=== PATIENT | female | born 1995 | race Caucasian/White ===

== ENCOUNTER 2017-06-08 17:05 | Emergency (ER) | payer MEDICAID, OTHER ==
[~2017-06-08 17:05] MED LIST: PREN1CAP30 PO
--- NOTE | 2017-06-08 18:12 | PD ---
HPI Chief Complaint Also of mucous plug and some contractions that are 10 minutes apart Date Seen: Jun 08, 2017 Time Seen: 18:00 Travel History International Travel<30 Days: No Contact w/Intl Traveler<30Days: No Known Affected Area: No History of Present Illness HPI Patient is 22-year-old white female at 39 weeks presents with contractions have spaced out and loss of mucous plug, denies bleeding or leakage of fluid. heart rate tracing is reactive and she is eddie every 5 to 8 minutes Weeks Gestation: 39 Para: 1 : 2 History Obstetric History Obstetric History One vaginal delivery Social History Alcohol Use: No Tobacco Use: No Substance Abuse: No Allergies-Medications (Allergen,Severity, Reaction): Coded Allergies: penicillin G (Unverified Allergy, Severe, rash, 05/04/17) Sulfa (Sulfonamide Antibiotics) (Unverified Allergy, Mild, HIVES, 05/04/17) amoxicillin (Unverified Allergy, Mild, HIVES, 05/04/17) Home Meds Active Scripts Without A W/Fe Fum-Fe (Provida Dha 16-16-1.25-110 mg) 1 Cap Cap, 1 TAB PO DAILY, #30 BOTTLE 11 Refills Prov:Lindy Machuca 12/09/16 Review of Systems General / Constitutional: No: Fever, Weight Gain, Chills, Other Eyes: No: Diploplia, Blurred Vision, Visual changes, Pain, Photophobia HENT: No: Headaches, Vertigo, Lightheadedness Cardiovascular: No: Irregular Rhythm, Chest Pain or Discomfort, Palpitations, Tachycardia, Syncope, Varicosities, Edema, Cyanosis Respiratory: No: Cough, Short of Breath, Other Gastrointestinal: No: Nausea, Vomiting, Diarrhea Genitourinary: No: Decreased Urinary Output, Oliguria Musculoskeletal: No: Limited ROM, Weakness, Cramping, Edema, Pain Skin: No Rash, No Itching, No Dryness, No Lumps, No Change in Pigmentation, No Change in Nails, No Alopecia, No Lesions Neurologic: No: Weakness, Dizziness, Syncope, Focal Abnormalities, Coordination Problem, Headache, Slurred Speech, Seizures Psychiatric: No: Depression, Suicidal Ideations, Homicidal Ideation Endocrine: No: Heat Intolerance, Cold Intolerance, Polydipsia, Polyuria, Other Physical Exam Narrative GENERAL: Well-nourished, well-developed patient. SKIN: Warm and dry. HEAD: Normocephalic and atraumatic. EYES: No scleral icterus. No injection or drainage. ENT: No nasal drainage noted. Mucous membranes pink. Airway patent. NECK: Supple, trachea midline. No JVD. CARDIOVASCULAR: Regular rate and rhythm without murmurs, gallops, or rubs. RESPIRATORY: Breath sounds equal bilaterally. No accessory muscle use. BREASTS: Bilateral exam showed no masses , no retractions, no nipple discharge. ABDOMEN/GI: Abdomen soft, non-tender, bowel sounds present, no rebound, no guarding Gravid to [39-] weeks size Fundal Height: [39-] GENITOURINARY: External Genitalia: intact and normal in appearance BUS glands: [-] Cervix: [Posterior-] Dilatation: [5-] Effacement: [80-] Station: [0-] baby's head is low in the pelvis and 0 station but the cervix was turned and way posterior very posterior and she is dilated as above Presentation: [vtx] Membranes: [intact ] Uterine Contractions: [-Every 5-8 minutes] FHT's: Category: [1-] Baseline: [133-] Reactive: [-yes] Variability: [mod-] Decels: [none-] EXTREMITIES: No cyanosis or edema. BACK: Nontender without obvious deformity. No CVA tenderness. NEUROLOGICAL: Awake and alert. Motor and sensory grossly within normal limits. Five out of 5 muscle strength in all muscle groups. Normal speech. 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 Also complained of losing her mucous plug. On exam cervix is 5 cm 80% and cervical exam is very posterior underneath the presenting part which is low in the pelvis the baby's head is about 0 station but the cervical os is much more posterior Plan Patient is not in active labor at this time and is given the option to go home she lives close or to return as needed. That she could stay and be observed through the night or just walk for an hour to an and be rechecked she just wanted to go home Diagnosis Diagnosis: Primary Impression: Labor, prolonged latent phase Disposition: DISCHARGE HOME Condition: Stable Nasim Connelly II, MD Jun 08, 2017 18:12
== END 2017-06-08 18:15 | disposition home or self-care (01) ==
LOC: HOBED 17:05
DX: O47.1 False labor at or after 37 completed weeks of gestation (principal); Z3A.39 39 weeks gestation of pregnancy
CPT/HCPCS: 59025; 87081

== ENCOUNTER 2017-06-08 21:10 | Inpatient (IN) | payer MEDICAID, OTHER ==
--- NOTE | 2017-06-08 21:30 | HHI.HP ---
History & Physical H&P Patient Name: Shalini Mar Unit Number: [id number] Date of : 1995 Patient Status: Departed Emergency Room Attending Doctor: Nasim Connelly II, MD HPI HPI Chief Complaint Also of mucous plug and some contractions that are 10 minutes apart Date Seen: Jun 08, 2017 Time Seen: 18:00 Travel History International Travel<30 Days: No Contact w/Intl Traveler<30Days: No Known Affected Area: No History of Present Illness HPI Patient is 22-year-old white female at 39 weeks presents with contractions increased over earlier exam and loss of mucous plug, denies bleeding or leakage of fluid. heart rate tracing is reactive and she is eddie every 5 to 8 minutes Weeks Gestation: 39 Para: 1 : 2 History (Limited) History Obstetric History Obstetric History One vaginal delivery Social History Alcohol Use: No Tobacco Use: No Substance Abuse: No Allergies-Medications Allergies-Medications (Allergen,Severity, Reaction): Coded Allergies: penicillin G (Unverified Allergy, Severe, rash, 05/04/17) Sulfa (Sulfonamide Antibiotics) (Unverified Allergy, Mild, HIVES, 05/04/17) amoxicillin (Unverified Allergy, Mild, HIVES, 05/04/17) Home Meds Active Scripts Without A W/Fe Fum-Fe (Provida Dha 16-16-1.25-110 mg) 1 Cap Cap, 1 TAB PO DAILY, #30 BOTTLE 11 Refills Prov:Lindy Machuca 12/09/16 ROS Review of Systems General / Constitutional: No: Fever, Weight Gain, Chills, Other Eyes: No: Diploplia, Blurred Vision, Visual changes, Pain, Photophobia HENT: No: Headaches, Vertigo, Lightheadedness Cardiovascular: No: Irregular Rhythm, Chest Pain or Discomfort, Palpitations, Tachycardia, Syncope, Varicosities, Edema, Cyanosis Respiratory: No: Cough, Short of Breath, Other Gastrointestinal: No: Nausea, Vomiting, Diarrhea Genitourinary: No: Decreased Urinary Output, Oliguria Musculoskeletal: No: Limited ROM, Weakness, Cramping, Edema, Pain Skin: No Rash, No Itching, No Dryness, No Lumps, No Change in Pigmentation, No Change in Nails, No Alopecia, No Lesions Neurologic: No: Weakness, Dizziness, Syncope, Focal Abnormalities, Coordination Problem, Headache, Slurred Speech, Seizures Psychiatric: No: Depression, Suicidal Ideations, Homicidal Ideation Endocrine: No: Heat Intolerance, Cold Intolerance, Polydipsia, Polyuria, Other Physical Exam Physical Exam Narrative GENERAL: Well-nourished, well-developed patient. SKIN: Warm and dry. HEAD: Normocephalic and atraumatic. EYES: No scleral icterus. No injection or drainage. ENT: No nasal drainage noted. Mucous membranes pink. Airway patent. NECK: Supple, trachea midline. No JVD. CARDIOVASCULAR: Regular rate and rhythm without murmurs, gallops, or rubs. RESPIRATORY: Breath sounds equal bilaterally. No accessory muscle use. BREASTS: Bilateral exam showed no masses , no retractions, no nipple discharge. ABDOMEN/GI: Abdomen soft, non-tender, bowel sounds present, no rebound, no guarding Gravid to [39-] weeks size Fundal Height: [39-] GENITOURINARY: External Genitalia: intact and normal in appearance BUS glands: [-] Cervix: [Posterior-] Dilatation: [7-] Effacement: [80-] Station: [0-] baby's head is low in the pelvis and 0 station but the cervix was turned and way posterior very posterior and she is dilated as above Presentation: [vtx] Membranes: [intact ]bulging bag Uterine Contractions: [-Every 5-8 minutes] FHT's: Category: [1-] Baseline: [133-] Reactive: [-yes] Variability: [mod-] Decels: [none-] EXTREMITIES: No cyanosis or edema. BACK: Nontender without obvious deformity. No CVA tenderness. NEUROLOGICAL: Awake and alert. Motor and sensory grossly within normal limits. Five out of 5 muscle strength in all muscle groups. Normal speech. 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 Also complained of losing her mucous plug. On exam cervix is 7cm 80% and cervical exam is very posterior underneath the presenting part which is low in the pelvis the baby's head is about 0 station but the cervical os is much more posterior Plan Patient is in active labor at this time and will be admitted for labor management anticipate vag delivery. Diagnosis Diagnosis: Primary Impression: Labor, Disposition: ADMIT Condition: Stable Nasim Connelly II, MD Jun 08, 2017 18:12 Nasim Connelly II, MD Jun 08, 2017 21:30
[2017-06-08] MEDS ORDERED: LACTATED RINGER'S 1000 ML INJ 1,000 ML IV SCH (21:33)
[2017-06-08] MEDS ORDERED: LACTATED RINGER'S 1000 ML INJ 1,000 ML IV PRN (21:33)
[2017-06-08] MEDS ORDERED: LIDOCAINE HCL 1% 50 ML VIAL I-DERMAL PRN (21:45)
[2017-06-08] MEDS ORDERED: LIDOCAINE HCL 1% 50 ML VIAL INFIL PRN (21:45)
[2017-06-08] MEDS ORDERED: CITRIC ACID-SODIUM CITRATE LIQ 30 ML UDC PO SCH (21:45)
[2017-06-08] MEDS ORDERED: MINERAL OIL 10 ML VIAL TOPICAL PRN (21:45)
[2017-06-08] MEDS ORDERED: OXYTOCIN 30 UNITS-500ML PREMIX 500 ML IV ONE (21:45)
[2017-06-08] MEDS ORDERED: SODIUM CHLORID 0.9% 500 ML INJ 500 ML IV PRN (21:45)
[2017-06-08] MEDS ORDERED: SODIUM CHLOR 0.9% 1000 ML INJ 1,000 ML IV PRN (21:53)
[2017-06-08] MEDS ORDERED: fentaNYL 2MCG-BUPIV 0.125% INJ 100 ML ONE (21:58)
[2017-06-08] MEDS ORDERED: VANCOMYCIN 1,000 MG/NS 250 ML IV SCH ×2 (22:00)
[2017-06-08] MEDS ORDERED: VANCOMYCIN INJ 1 GM in SODIUM CHLORIDE 0.9% INJ 250 ML IV SCH (22:00)
[2017-06-08 22:12] LABS: BASOPHIL # 0.1 TH/MM3 (0-0.2); BASOPHIL % 0.6 % (0.0-2.0); EOSINOPHIL # 0.1 TH/MM3 (0-0.4); EOSINOPHIL % 0.5 % (0.0-4.0); HEMATOCRIT 32.8 % (35.0-46.0); HEMO FLAGS DIFF FINAL; LYMPH % 21.3 % (9.0-44.0); LYMPHOCYTE # 2.1 TH/MM3 (1.0-4.8); MEAN CORPUSCULAR HEMOGLOBIN 28.4 PG (27.0-34.0); MONO % 7.7 % (0.0-8.0); NEUT % 69.9 % (16.0-70.0); PLATELET COUNT 177 TH/MM3 (150-450); RED BLOOD COUNT 3.81 MIL/MM3 (4.00-5.30); RED CELL DISTRIBUTION WIDTH 14.2 % (11.6-17.2)
[2017-06-08 22:15] LABS: BACTERIA, URINE RARE /hpf; BLOOD, URINE NEG (NEG); COMMENT (UR) CULT NOT INDICATED; CULTURE IF INDICATED CULT NOT INDICATED; GLUCOSE,URINE NEG (NEG); KETONE, URINE NEG (NEG); NITRITE,URINE NEG (NEG); PH, URINE 6.5 (5.0-8.5); SQUAMOUS EPITHELIAL CELL URINE 1 /hpf (0-5); URINE COLOR LIGHT-YELLOW (YELLW/STRAW)
[2017-06-08] MEDS ORDERED: LIDOCAINE HCL 1% 30 ML VIAL INFIL PRN (22:30)
[2017-06-08] MEDS ORDERED: ePHEDrine/NS 25 MG/5 ML SYR ONE (23:28)
[2017-06-09] MEDS ORDERED: ONDANSETRON HCL 4 MG/2 ML VIAL ONE (00:27)
--- NOTE | 2017-06-09 01:03 | PD.OB.DELI ---
Weeks gestation: 39 Gest age assessed date: Jun 09, 2017 Gest age assessed time: 01:00 Pt started active labor?: Yes Medical induction of labor?: No Artificial rupture of membrane: Yes Artificial ROM date: Jun 09, 2017 Artifical ROM time: 23:43 Anesthesia: Epidural Episiotomy: None Vaginal Delivery: Normal, Spontaneous Presentation: Occiput anterior Nuchal Cord: None Delayed cord clamping (45 sec): Yes Infant: Male Delivery date: Jun 09, 2017 Delivery time: 00:50 One Minute : 8 Five Minute : 9 Weight: 7 lb 2 oz Placenta: Spontaneous delivery, Intact, 3 vessel cord Laceration: No lacerations Additional Information Performed by Dr. Oviedo Attended by Samuel Davalos MD Jun 09, 2017 01:02
[2017-06-09] MEDS ORDERED: ONDANSETRON ODT 4 MG TAB PO PRN (01:15)
[2017-06-09] MEDS ORDERED: SODIUM CHLORIDE 0.9% FLUSH 10 ML FLUSH IV FLUSH PRN (01:15)
[2017-06-09] MEDS ORDERED: DOCUSATE SODIUM 50 MG/SENNA 8.6 MG TAB PO PRN (01:15)
[2017-06-09] MEDS ORDERED: OXYTOCIN 30 UNITS-500ML PREMIX 500 ML IV SCH (01:15)
[2017-06-09] MEDS ORDERED: ALUMINUM/MAGNESIUM/SIMETH 30 ML CUP PO PRN (01:15)
[2017-06-09] MEDS ORDERED: oxyCODONE/ACETAMINOPHEN 5 MG/325 MG TAB PO PRN ×2 (01:15)
[2017-06-09] MEDS ORDERED: WITCH HAZEL 50%/GLYCERIN 12.5% 40 PAD JAR TOPICAL PRN (01:15)
[2017-06-09] MEDS ORDERED: ZOLPIDEM TARTRATE 5 MG TAB PO PRN (01:15)
[2017-06-09] MEDS ORDERED: BENZOCAINE 20% TOPICAL SPRAY 60 ML CAN TOPICAL PRN (01:15)
[2017-06-09] MEDS ORDERED: fentaNYL 2MCG-BUPIV 0.125% 100 ML EPIDURAL SCH (01:45)
[2017-06-09] MEDS ORDERED: NO SYSTEM NARCOTICS PRN (01:45)
[2017-06-09] MEDS ORDERED: ePHEDrine/NS 25 MG/5 ML SYR IV PRN (01:45)
[2017-06-09] MEDS ORDERED: DO NOT ADMINISTER ANTICOAGULANTS PRN (01:45)
[2017-06-09] MEDS ORDERED: METHYLERGONOVINE MALEATE 0.2 MG/ML VIAL IM ONE (02:20)
[2017-06-09] MEDS ORDERED: METHYLERGONOVINE MALEATE 0.2 MG/ML VIAL ONE (02:24)
[2017-06-09] MEDS: IBUPROFEN 600 MG TAB PO PRN ×4 (03:41→22:49)
[2017-06-09] MEDS ORDERED: SODIUM CHLORIDE 0.9% FLUSH 10 ML FLUSH IV FLUSH SCH (09:00)
[2017-06-09] MEDS: ACETAMINOPHEN 325 MG TAB PO PRN ×3 (11:12→22:50)
[2017-06-09] MEDS ORDERED: MEASLES, MUMPS, RUBELLA VACCINE 0.5 ML VIAL SQ ONE (16:00)
[2017-06-09] MEDS ORDERED: DIPHTH/TETANUS/ACEL PERTUSSIS (BOOSTER) 0.5 ML VIAL/PFS IM ONE (16:00)
--- NOTE | 2017-06-10 08:28 | HHI.OB ---
Subjective Post Day: 1 Remarks Pt seen and examined this morning. day # 1 AFVSS overnight. Decreased lochia. Denies dysuria. No breast tenderness. She is feeding the baby via breast and bottle. Appetite good. No nausea or vomiting. Patient has not yet had a bowel movement, but does endorse bowel gas. Ambulating well. Denies calf pain or shortness of breath. Otherwise, she is doing well this morning and has no other concerns. Objective Objective Remarks GENERAL: Well-nourished, well-developed patient. CARDIOVASCULAR: Regular rate and rhythm without murmurs, gallops, or rubs. RESPIRATORY: Breath sounds equal bilaterally. No accessory muscle use. ABDOMEN/GI: Abdomen soft, non-tender. Fundus: Firm, non-tender at umbilicus. GENITOURINARY: Light to moderate bleeding. EXTREMITIES: No cyanosis or edema, non-tender, without signs of DVT. Medications and IVs Current Medications Medications (Trade) Dose Ordered Sig/Lavon Route Start Time Stop Time Status Last Admin (NS Flush) 2 ml BID IV FLUSH 06/09/17 09:00 06/09/17 02:45 (NS Flush) 2 ml UNSCH PRN IV FLUSH 06/09/17 01:15 (Tylenol) 650 mg Q4H PRN PO 06/09/17 01:15 06/09/17 22:50 (Motrin) 600 mg Q6H PRN PO 06/09/17 01:15 06/09/17 22:49 (Percocet 5-325 Mg) 1 tab Q4H PRN PO 06/09/17 01:15 (Percocet 5-325 Mg) 2 tab Q4H PRN PO 06/09/17 01:15 (Americaine 20% Top Spr) 1 spray Q4H PRN TOPICAL 06/09/17 01:15 (Tucks Pads) 1 applic QID PRN TOPICAL 06/09/17 01:15 (Nayana-Colace) 2 tab Q12H PRN PO 06/09/17 01:15 (Ambien) 5 mg HS PRN PO 06/09/17 01:15 (Mag-Al Plus Susp Liq) 15 ml Q8H PRN PO 06/09/17 01:15 (Zofran Odt) 4 mg Q6H PRN PO 06/09/17 01:15 Fentanyl/ Bupivacaine HCl 100 ml @ 0 mls/hr TITRATE EPIDURAL 06/09/17 01:45 Assessment/Plan Problem List: (1) (spontaneous vaginal delivery) ICD Codes: O80 - Encounter for full-term uncomplicated delivery Status: Acute Assessment and Plan 22 y/o female who is day # 1 s/p . -Continue routine care. -Motrin PRN pain. -Encouraged OOB. Advised pelvic rest for 6 wks. -Re: ctrl, she would like to discuss her options are follow-up appointment. -Anticipate discharge today with baby. al Franklin MD Discharge Planning Today with baby [place] MD R2 Jun 10, 2017 08:28
[2017-06-10 08:30] VITALS: BP 130/78; PULSE 83; RESP 14; TEMP 98.1
[2017-06-10] MEDS ORDERED: IBUP-232 PO (09:12)
[2017-06-10] MEDS ORDERED: SENN1TAB PO (09:12)
--- NOTE | 2017-06-10 09:16 | HHI.DCPOC ---
Discharge Care Plan Diagnosis: (1) (spontaneous vaginal delivery) Report Symptoms to Your Doctor -Temperature above 100.5 degrees -Redness, of incision or excessive or foul smelling drainage -Unusual pain or calf pain -Increased vaginal bleeding -Painful or difficulty urinating -Feelings of extreme sadness or anxiety after 2 weeks Goals to Promote Your Health * To prevent worsening of your condition and complications * To maintain your health at the optimal level Directions to Meet Your Goals Take your medications as prescribed Follow your dietary instruction Follow activity as directed Ensure plenty of rest for recovery Drink fluids for hydration Keep your appointments as scheduled Take your immunizations and boosters as scheduled If your symptoms worsen call your PCP, if no PCP go to Urgent Care Center or Emergency Room Smoking is Dangerous to Your Health. Avoid second hand smoke Call the 24-hour crisis hotline for domestic abuse at [place] MD R2 Jun 10, 2017 09:16
== END 2017-06-10 12:43 | disposition home or self-care (01) | DRG 775 ==
LOC: HOBED 21:10 → H2EB 21:32 → H1EA 06-09 03:47
PROVIDERS: ADMIT Obstetrics & Gynecology Maternal & Fetal Medicine; ATTEND Obstetrics & Gynecology Maternal & Fetal Medicine
PROC: 3E0S3CZ (ICD-10-PCS; 2017-06-08)
PROC: 00HU33Z Insertion of Infusion Device into Spinal Canal, Percutaneous Approach (ICD-10-PCS; 2017-06-08)
PROC: 10E0XZZ Delivery of Products of Conception, External Approach (ICD-10-PCS; principal; 2017-06-09)
DX: O80 Encounter for full-term uncomplicated delivery (principal); Z37.0 Single live birth; Z3A.39 39 weeks gestation of pregnancy
CPT/HCPCS: 59025; 81001; 85025; 85461; 86850; 86900; 86901; 87081; 90384; 99285; J2210; J2405; J2590; J2790; J3370; J7050; J7120

== ENCOUNTER 2017-08-23 08:36 | Emergency (ER) | payer MEDICAID, OTHER ==
[~2017-08-23] VITALS: Ht 167.6 cm; Wt 72.5 kg
[~2017-08-23 08:36] MED LIST changes: +IBUP-232 PO; +SENN1TAB PO
[2017-08-23 08:37] VITALS: BP 165/88; PULSE 76; RESP 16; TEMP 99.4; O2SAT 98
[2017-08-23] MEDS ORDERED: AZIT250T3 PO (09:42)
--- NOTE | 2017-08-23 09:42 | PD ---
HPI Chief Complaint: Cold / Flu Symptoms Time Seen by Provider: 09:25 Travel History International Travel<30 days: No Contact w/Intl Traveler<30days: No Traveled to known affect area: No History of Present Illness HPI 22-year-old female presents to the emergency room for evaluation of cough, congestion, sore throat, and earache for the past 4 days. States that congestion has mostly cleared she is not coughing up green sputum. She has had persistent left earache. Reports history of ear problems as a child. She has been taking DayQuil for symptoms. Denies any drainage, objective fevers, or chills. No chronic medical conditions or daily medications. 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) : 0 Past Surgical History Ear Surgery: Yes (left ear tubes placed) Tonsillectomy: Yes Social History Alcohol Use: No Tobacco Use: No Substance Use: No Allergies-Medications (Allergen,Severity, Reaction): Coded Allergies: penicillin G (Unverified Allergy, Severe, rash, 08/23/17) Sulfa (Sulfonamide Antibiotics) (Unverified Allergy, Mild, HIVES, 08/23/17) amoxicillin (Unverified Allergy, Mild, HIVES, 08/23/17) Reported Meds & Prescriptions Reported Meds & Active Scripts Active Senna Plus 8.6-50 mg (Sennosides-Docusate Sodium) 8.6 Mg-50 Mg Tab 2 Tab PO Q12H PRN Ibuprofen 600 Mg Tab 600 Mg PO Q6H PRN Provida Dha 16-16-1.25-110 mg ( Without A W/Fe Fum-Fe) 1 Cap Cap 1 Tab PO DAILY Review of Systems Except as stated in HPI: all other systems reviewed are Neg Physical Exam Narrative GENERAL: Well-nourished, well-developed female in no acute distress. Afebrile. Ambulatory. SKIN: Focused skin assessment warm/dry. HEAD: Normocephalic. EYES: No scleral icterus. No injection or drainage. ENT: Mucosa pink and moist. No erythema or exudates. No uvular edema. No uvular , palatal, or tonsillar deviation. Airway patent. Nasal turbinates appear normal without nasal blood, purulent drainage or septal hematoma. EARS: Bilateral pinnae and external canals appear within normal limits. Left tympanic membrane is mildly erythematous with obvious effusion. No perforation. Right tympanic membrane unremarkable. NECK: Supple, trachea midline. No JVD or lymphadenopathy. CARDIOVASCULAR: Regular rate and rhythm without murmurs, gallops, or rubs. RESPIRATORY: Breath sounds equal bilaterally. No accessory muscle use. No crackles, rales, wheezes, or rhonchi. Data Data Last Documented VS Vital Signs Date Time Temp Pulse Resp B/P (MAP) Pulse Ox O2 Delivery O2 Flow Rate FiO2 08/23/17 08:37 99.4 76 16 165/88 (113) 98 Room Air [facility] Medical Decision Making Medical Screen Exam Complete: Yes Emergency Medical Condition: Yes Medical Record Reviewed: Yes Differential Diagnosis Otitis media, otitis externa, strep, flu, URI Narrative Course 22-year-old otherwise healthy female presents to the emergency room for evaluation of cough and cold symptoms for the past 4 days. Patient's greatest complaint is left ear pain that has been persistent. Denies drainage. Physical exam reveals obvious effusion and mild erythema of the left tympanic membrane. Physical exam is otherwise unremarkable. Patient was told this is likely viral upper respiratory infection with prior otitis media but will be treated empirically for otitis media with azithromycin. Told to follow-up with a primary care physician or return for worsening symptoms. She understands and agrees to plan. Diagnosis Primary Impression: Otitis media Qualified Codes: H66.002 - Acute suppurative otitis media without spontaneous rupture of ear drum, left ear Additional Impression: Upper respiratory infection Qualified Codes: J00 - Acute nasopharyngitis [common cold] Referrals: Primary Care Physician Additional Instructions: Azithromycin as directed, until gone. Tylenol and Motrin for pain. Follow-up with PCP. Return for worsening symptoms. Med/Other Pt SpecificInfo: Prescription(s) given Disposition: 01 DISCHARGE HOME Condition: Stable Vielka Moran Aug 23, 2017 09:42
== END 2017-08-23 10:05 | disposition home or self-care (01) ==
LOC: NEPK 08:36
DX: J06.9 Acute upper respiratory infection, unspecified (principal); H66.92 Otitis media, unspecified, left ear; Z79.899 Other long term (current) drug therapy; Z88.0 Allergy status to penicillin; Z88.2 Allergy status to sulfonamides
CPT/HCPCS: 99283